=== PATIENT | female | born 1975 | race Caucasian/White ===

== ENCOUNTER 2017-12-27 18:07 | Observation (INO) ==
[2017-12-27] MEDS ORDERED: 0.9 % Sodium Chloride 1,000 ML IVC ONE (18:14)
[2017-12-27] MEDS ORDERED: Ondansetron 4 MG/2 ML VIAL IVP ONE (18:14)
[2017-12-27] MEDS ORDERED: Promethazine 12.5 MG in 0.9 % Sodium Chloride 50 ML IVPB STA (18:39)
[2017-12-27] MEDS ORDERED: Hyoscyamine 0.5 MG/ML MLS IVP ONE ×2 (18:39→23:33)
--- NOTE | 2017-12-27 18:39 | Emergency Department Note ---
Disposition Clinical Impression: Nausea and vomiting Abdominal pain Qualifiers: Abdominal location: unspecified location Qualified Code(s): R10.9 - Unspecified abdominal pain Disposition: Still a Patient Condition: Fair Referrals: Neelima Meyer MD [Primary Care Provider] - Forms: ED Satisfaction Letter, Work/School Release Time of Disposition: 18:48 General Adult HPI - General Chief complaint: ED Abdominal Pain Stated complaint: Flu like symptoms Time Seen by Provider: 12/27/17 18:12 Source: patient Mode of arrival: ambulatory Limitations: no limitations Nursing Notes Reviewed: Yes Vital Signs Reviewed: Yes - History of Present Illness HPI Narrative: Patient is a 42-year-old female with a past medical history of GI disorder presents to the emergency department for evaluation of nausea, vomiting and epigastric abdominal pain. The patient states that she has had this pain that has been chronic and occurs on a weekly basis and usually she is able to self treated at home with a benzodiazepine medication as well as an anti-medic. However, today she states on her way to work she began having this pain with nausea vomiting and epigastric pain that is sharp stabbing and waxing and waning. States she tried her normal home home medications and had no relief. She states that she has taken 3 doses of her home Zofran and continues to have nausea and vomiting. She sees also had multiple episodes of diarrhea today. All nonbloody nonbilious. States she is also been seen by gastroenterology, Dr. Rowe, they have never been able to find any answer as to why she has this chronic abdominal pain. Pain Scale: 3 - Related Data Home Medications Medication Instructions Recorded Confirmed Atorvastatin Calcium [Lipitor] 80 mg PO DAILY 07/29/15 09/21/15 Buspirone HCl [Buspar] 5 mg PO TID PRN 07/29/15 09/21/15 Lisinopril [Zestril] 5 mg PO DAILY 07/29/15 09/21/15 Norethindrone AC-Eth Estradiol 1 tab PO DAILY 07/29/15 09/21/15 [Microgestin 21 1.5-30 Tab] Pioglitazone [Actos] 45 mg PO DAILY 07/29/15 09/21/15 metFORMIN [Glucophage] 1,000 mg PO DAILY 07/29/15 09/21/15 Ferrous Sulfate [Iron] 325 mg PO DAILY 09/21/15 09/21/15 Previous Rx's Medication Instructions Recorded Omeprazole [PriLOSEC] 20 mg PO DAILY #30 capsule 08/01/15 Ondansetron ODT [Zofran ODT] 4 mg SL Q4H PRN #20 tab.rapdis 08/01/15 Simethicone [Gas-X] 80 mg PO TID PRN #45 tab.chew 08/01/15 Allergies Allergy/AdvReac Type Severity Reaction Status Date / Time No Known Allergies Allergy Verified 07/29/15 19:12 All systems ED: reviewed and negative except as stated. Review of Systems: As Per HPI Constitutional: Denies: fever, chills Cardiovascular: Denies: chest pain, palpitations Respiratory: Denies: cough, dyspnea, wheezes Gastrointestinal: Reports: abdominal pain, nausea, vomiting, diarrhea. Denies: constipation, hematemesis, melena, hematochezia Genitourinary: Denies: urgency, dysuria, frequency Musculoskeletal: Denies: back pain, neck pain Past Medical History - Past Medical History Attestation: Yes The following information was validated with the patient. Medical history: Reports: diabetes, hypertension Surgical history: Reports: no surgical history Psychiatric history: Reports: no psych history - Social History Smoking Status: Never smoker Smokeless Tobacco Status: No Alcohol use: Reports: none Drug use: Reports: none Physical Exam CONSTITUTIONAL: Well-appearing; well-nourished; A&O X 3, in no apparent distress HEAD: Normocephalic; atraumatic EYES: PERRL, no scleral icterus NOSE: The nose is normal in appearance without rhinorrhea NECK: No JVD or distended neck veins RESP: Normal chest excursion with respiration; breath sounds clear and equal bilaterally; no wheezes, rhonchi, or rales CARD: Regular rhythm, without murmurs, rub or gallop ABD: Non-distended; epigastric tenderness that is moderate to severe with guarding and rigidity, no rebound. CHEST: No pain with palpation SKIN: Normal for age and race; warm and dry without diaphoresis ; no apparent lesions EXTREMITIES: Pulses are 2 plus and equal times 4 extremities, no peripheral edema or calf muscle pain - General Limitations: no limitations General appearance: alert, in no apparent distress Course Course Narrative: Plan this time is for the patient undergo a lab workup to evaluate for cardiac versus abdominal etiology of the patient's pain. She was even a chest x-ray, and EKG as well as abdominal labs with a CT scan of the abdomen and pelvis. The attempt to provide symptomatic relief of pain with Phenergan as well as Toradol and Bentyl. Vital Signs Temperature 98.4 F 12/27/17 18:11 Pulse Rate 99 12/27/17 18:11 Respiratory Rate 18 12/27/17 18:11 Blood Pressure 162/98 12/27/17 18:11 O2 Sat by Pulse Oximetry 97 12/27/17 18:11 Temperature 98.4 F 12/27/17 18:25 Pulse Rate 85 12/27/17 18:37 Respiratory Rate 22 12/27/17 18:37 Blood Pressure 139/58 12/27/17 18:37 O2 Sat by Pulse Oximetry 98 12/27/17 18:37 Oxygen Delivery Oxygen Delivery Room Air Medical Decision Making - Medical Records Medical records reviewed: Yes I reviewed the patient's medical records. - Lab Data Lab results reviewed: Yes I reviewed the patient's lab results. Lab Results 12/27/17 12/27/17 Range/Units 18:40 18:40 Urine Color Yellow (Yellow) Urine Clarity Clear (Clear) Urine pH 5.5 (5.0-8.0) pH Units Ur Specific [place] 1.028 H (1.010-1.025) Urine Protein 30 H (Neg-Trace) mg/dL Urine Glucose (UA) Normal (Normal) mg/dL Urine Ketones 40 H (Negative) mg/dL Urine Blood Negative (Negative) Urine Nitrite Negative (Negative) Urine Bilirubin Negative (Negative) Urine Urobilinogen Normal (Normal) mg/dL Ur Leukocyte Esterase Negative (Negative) Urine Microscopic RBC 0-3 (0-3) per hpf Urine Microscopic WBC 3-5 H (0-3) per hpf Ur Squamous Epith Cells Many H (None-Few) per lpf Urine Bacteria None Seen (None-Few) per hpf Hyaline Casts None Seen (None-Few) per lpf Ur Culture Indicated? NO (NO) Urine Test Negative (Negative) S.B.A.R. - S.B.A.R. Situation: Demographics, MOA Background: Presenting Complaint, Relevant PMH, Meds, & Allergies Assessment: Vital Signs, Course and respsone to treatment, Exam Concerns, Patient/Family Expectation, Pertinant Lab Results, Outstanding Labs Recommendation: Barrier(s) to disposition, Recommendation based on pending studies, treatments, or consults Deanna Report Given to: Marilu Huerta Repor Time: 18:47
--- NOTE | 2017-12-27 18:49 | Emergency Department Note ---
Disposition Clinical Impression: Abdominal pain Qualifiers: Abdominal location: unspecified location Qualified Code(s): R10.9 - Unspecified abdominal pain Disposition: Still a Patient Referrals: Neelima Meyer MD [Primary Care Provider] - Forms: ED Satisfaction Letter, Work/School Release General Adult HPI - General Chief complaint: ED Abdominal Pain Stated complaint: Flu like symptoms Time Seen by Provider: 12/27/17 18:12 Source: patient Mode of arrival: ambulatory Limitations: no limitations - History of Present Illness Pain Scale: 3 - Related Data Home Medications Medication Instructions Recorded Confirmed Atorvastatin Calcium [Lipitor] 80 mg PO DAILY 07/29/15 09/21/15 Buspirone HCl [Buspar] 5 mg PO TID PRN 07/29/15 09/21/15 Lisinopril [Zestril] 5 mg PO DAILY 07/29/15 09/21/15 Norethindrone AC-Eth Estradiol 1 tab PO DAILY 07/29/15 09/21/15 [Microgestin 21 1.5-30 Tab] Pioglitazone [Actos] 45 mg PO DAILY 07/29/15 09/21/15 metFORMIN [Glucophage] 1,000 mg PO DAILY 07/29/15 09/21/15 Ferrous Sulfate [Iron] 325 mg PO DAILY 09/21/15 09/21/15 Previous Rx's Medication Instructions Recorded Omeprazole [PriLOSEC] 20 mg PO DAILY #30 capsule 08/01/15 Ondansetron ODT [Zofran ODT] 4 mg SL Q4H PRN #20 tab.rapdis 08/01/15 Simethicone [Gas-X] 80 mg PO TID PRN #45 tab.chew 08/01/15 Allergies Allergy/AdvReac Type Severity Reaction Status Date / Time No Known Allergies Allergy Verified 07/29/15 19:12 Constitutional: Denies: fever, chills Cardiovascular: Denies: chest pain, palpitations Respiratory: Denies: cough, dyspnea, wheezes Gastrointestinal: Reports: abdominal pain, nausea, vomiting, diarrhea. Denies: constipation, hematemesis, melena, hematochezia Genitourinary: Denies: urgency, dysuria, frequency Musculoskeletal: Denies: back pain, neck pain Past Medical History - Past Medical History Medical history: Reports: diabetes, hypertension Surgical history: Reports: no surgical history Psychiatric history: Reports: no psych history - Social History Smoking Status: Never smoker Smokeless Tobacco Status: No Alcohol use: Reports: none Drug use: Reports: none Physical Exam - General Limitations: no limitations General appearance: alert, in no apparent distress Course Vital Signs Temperature 98.4 F 12/27/17 18:11 Pulse Rate 99 12/27/17 18:11 Respiratory Rate 18 12/27/17 18:11 Blood Pressure 162/98 12/27/17 18:11 O2 Sat by Pulse Oximetry 97 12/27/17 18:11 Temperature 98.4 F 12/27/17 18:25 Pulse Rate 99 12/27/17 18:25 Respiratory Rate 18 12/27/17 18:25 Blood Pressure 162/98 12/27/17 18:25 O2 Sat by Pulse Oximetry 99 12/27/17 18:37 Oxygen Delivery Oxygen Delivery Room Air Attestation Statement - Attestation Attestation: I examined this patient and my medical decision-making was reviewed with the Resident Physician. I agree with the documented findings, disposition and treatment plan as described except to the extent set forth below. 42 year [facility] and states that it is generalzied abdominal pain without a periotoneal abdomen. [facility] Labs, UA, and ABCT pending.
[2017-12-27 18:59] LABS: Bilirubin,Urine Negative (Negative); Blood,Urine Negative (Negative); Clarity,Urine Clear (Clear); Color,Urine Yellow (Yellow); Glucose,Urine (UA) Normal (Normal); Ketones,Urine 40 mg/dL (Negative); Leukocyte Esterase,Urine Negative (Negative); Nitrite,Urine Negative (Negative); PH,Urine 5.5 pH Units (5.0-8.0); Protein,Urine 30 mg/dL (Neg-Trace); Specific Gravity,Urine 1.028 (1.010-1.025); Urobilinogen,Urine Normal (Normal)
[2017-12-27 19:02] LABS: Bacteria,Urine None Seen per hpf (None-Few); Hyaline Casts,Urine None Seen per lpf (None-Few); RBC,Urine 0-3 per hpf (0-3); Squamous Epithelial Cell,Urine Many per lpf (None-Few)
[2017-12-27] MEDS ORDERED: *HR* Promethazine 25 MG/ML VIAL IVP STA (19:04)
[2017-12-27 19:16] LABS: Basophils # 0.1 K/mcL (0.0-0.2); Basophils % 0.4 %; Eosinophils # 0.1 K/mcL (0.0-0.6); Eosinophils % 0.3 %; Hematocrit 45.6 % (35.3-44.9); Hemoglobin 15.1 g/dL (11.5-15.4); Immature Granulocytes % 0.4 % (0-4); Lymphocytes # 1.7 K/mcL (0.6-4.6); Lymphocytes % 10.8 %; Mean Corpuscular HGB Conc 33.1 g/dL (31.6-35.5); Mean Corpuscular Hemoglobin 29.4 pg (28.0-33.3); Mean Corpuscular Volume 88.9 fL (83.0-100.0); Mean Platelet Volume 10.2 fL (9.4-12.4); Monocytes # 0.6 K/mcL (0.0-1.3); Monocytes % 3.4 %; Neutrophils # 13.5 K/mcL (1.6-8.9); Platelet Count 424 K/mcL (140-400); Red Blood Count 5.13 M/mcL (3.82-4.97); Segmented Neutrophils % 84.7 %
[2017-12-27 19:32] LABS: Troponin I < 0.03 ng/mL (< 0.04)
[2017-12-27 19:36] LABS: Alanine Aminotransferase 13 Units/L (7-52); Albumin/Globulin Ratio 1.3 (1.1-2.2); Alkaline Phosphatase 82 Units/L (34-104); Aspartate Amino Transferase 13 Units/L (13-39); BUN/Creatinine Ratio 14 (6-26); Bilirubin,Direct 0.1 mg/dL (0.0-0.2); Bilirubin,Indirect 0.5 mg/dL (0.0-1.2); Bilirubin,Total 0.6 mg/dL (0.3-1.0); Blood Urea Nitrogen 13 mg/dL (6-20); Calcium 9.5 mg/dL (8.6-10.3); Carbon Dioxide 23 mEq/L (23-29); Chloride 101 mEq/L (98-107); Globulin 3.1 g/dL (2.4-3.5); Glucose 156 mg/dL (70-105); Lipase 7 Units/L (11-82); Osmolality,Calculated 281 (280-300); Potassium 4.5 mEq/L (3.5-5.1); Sodium 134 mEq/L (136-145); Total Protein 7.1 g/dL (6.4-8.9); eGFR For Non-African Americans > 60 (> 60)
--- NOTE | 2017-12-27 22:42 | Emergency Department Note ---
Addendum entered and electronically signed by Andrea Dunham DO 12/27/17 23:12 : Called and spoke with admitting hospitalist Dr Ingram and he has accepted the patient of the service. patient will be admitted to the hospital for further evaluation and management. Original Note: Disposition Clinical Impression: Enteritis, Colitis Abdominal pain Qualifiers: Abdominal location: unspecified location Qualified Code(s): R10.9 - Unspecified abdominal pain Nausea and vomiting Qualifiers: Vomiting type: unspecified Vomiting Intractability: non-intractable Qualified Code(s): R11.2 - Nausea with vomiting, unspecified Disposition: Admitted As Inpatient Condition: Fair Time of Disposition: 22:41 General Adult HPI - General Chief complaint: ED Abdominal Pain Stated complaint: Flu like symptoms Time Seen by Provider: 12/27/17 18:12 Source: patient Mode of arrival: ambulatory Limitations: no limitations - History of Present Illness Pain Scale: 0 - Related Data Home Medications Medication Instructions Recorded Confirmed Atorvastatin Calcium [Lipitor] 80 mg PO DAILY 07/29/15 09/21/15 Buspirone HCl [Buspar] 5 mg PO TID PRN 07/29/15 09/21/15 Lisinopril [Zestril] 5 mg PO DAILY 07/29/15 09/21/15 Norethindrone AC-Eth Estradiol 1 tab PO DAILY 07/29/15 09/21/15 [Microgestin 21 1.5-30 Tab] Pioglitazone [Actos] 45 mg PO DAILY 07/29/15 09/21/15 metFORMIN [Glucophage] 1,000 mg PO DAILY 07/29/15 09/21/15 Ferrous Sulfate [Iron] 325 mg PO DAILY 09/21/15 09/21/15 Previous Rx's Medication Instructions Recorded Omeprazole [PriLOSEC] 20 mg PO DAILY #30 capsule 08/01/15 Ondansetron ODT [Zofran ODT] 4 mg SL Q4H PRN #20 tab.rapdis 08/01/15 Simethicone [Gas-X] 80 mg PO TID PRN #45 tab.chew 08/01/15 Allergies Allergy/AdvReac Type Severity Reaction Status Date / Time No Known Allergies Allergy Verified 07/29/15 19:12 Constitutional: Denies: fever, chills Cardiovascular: Denies: chest pain, palpitations Respiratory: Denies: cough, dyspnea, wheezes Gastrointestinal: Reports: abdominal pain, nausea, vomiting, diarrhea. Denies: constipation, hematemesis, melena, hematochezia Genitourinary: Denies: urgency, dysuria, frequency Musculoskeletal: Denies: back pain, neck pain Past Medical History - Past Medical History Medical history: Reports: diabetes, hypertension Surgical history: Reports: no surgical history Psychiatric history: Reports: no psych history - Social History Smoking Status: Never smoker Smokeless Tobacco Status: No Alcohol use: Reports: none Drug use: Reports: none Physical Exam - General Limitations: no limitations General appearance: alert, in no apparent distress Course Vital Signs Temperature 98.4 F 12/27/17 18:11 Pulse Rate 99 12/27/17 18:11 Respiratory Rate 18 12/27/17 18:11 Blood Pressure 162/98 12/27/17 18:11 O2 Sat by Pulse Oximetry 97 12/27/17 18:11 Temperature 98.4 F 12/27/17 18:25 Pulse Rate 88 12/27/17 22:29 Respiratory Rate 16 12/27/17 22:29 Blood Pressure 138/91 12/27/17 22:29 O2 Sat by Pulse Oximetry 98 12/27/17 22:29 Oxygen Delivery Oxygen Delivery Room Air Medical Decision Making - MDM Narrative Medical decision making narrative: Patient received in signout [place] [address] Wang and Dr. liz Morris please see their documentation for history of presenting illness, physical exam and initial medical decision making. CT of the abdomen and pelvis was obtained which showed concerns for possible inflammatory bowel disease. Patient does have an elevated white count. This and these findings and feel that the patient should be admitted to the hospital for further evaluation and management of her abdominal pain. Patient will likely need a GI consult while here in the hospital. Culture spoke the admitting hospitalist - Lab Data Lab results reviewed: Yes I reviewed the patient's lab results. Result diagrams: 12/27/17 18:14 12/27/17 18:14 Lab Results 12/27/17 12/27/17 12/27/17 Range/Units 18:14 18:14 18:40 WBC 16.0 H (4.3-11.1) K/mcL RBC 5.13 H (3.82-4.97) M/mcL Hgb 15.1 (11.5-15.4) g/dL Hct 45.6 H (35.3-44.9) % MCV 88.9 (83.0-100.0) fL MCH 29.4 (28.0-33.3) pg MCHC 33.1 (31.6-35.5) g/dL RDW 14.0 (11.5-14.5) % Plt Count 424 H (140-400) K/mcL MPV 10.2 (9.4-12.4) fL Immature Gran % 0.4 (0-4) % Seg Neutrophils % 84.7 % Lymphocytes % 10.8 % Monocytes % 3.4 % Eosinophils % 0.3 % Basophils % 0.4 % Neutrophils # 13.5 H (1.6-8.9) K/mcL Lymphocytes # 1.7 (0.6-4.6) K/mcL Monocytes # 0.6 (0.0-1.3) K/mcL Eosinophils # 0.1 (0.0-0.6) K/mcL Basophils # 0.1 (0.0-0.2) K/mcL Sodium 134 L (136-145) mEq/L Potassium 4.5 (3.5-5.1) mEq/L Chloride 101 (98-107) mEq/L Carbon Dioxide 23 (23-29) mEq/L BUN 13 (6-20) mg/dL Creatinine 0.92 (0.60-1.20) mg/dL Est GFR ( Amer) > 60 (> 60) Est GFR (Non-Af Amer) > 60 (> 60) BUN/Creatinine Ratio 14 (6-26) Glucose 156 H (70-105) mg/dL Calculated Osmolality 281 (280-300) Lactic Acid (0.5-2.2) mmol/L Calcium 9.5 (8.6-10.3) mg/dL Total Bilirubin 0.6 (0.3-1.0) mg/dL Direct Bilirubin 0.1 (0.0-0.2) mg/dL Indirect Bilirubin 0.5 (0.0-1.2) mg/dL AST 13 (13-39) Units/L ALT 13 (7-52) Units/L Alkaline Phosphatase 82 (34-104) Units/L Troponin I < 0.03 (< 0.04) ng/mL Serum Total Protein 7.1 (6.4-8.9) g/dL Albumin 4.0 (3.5-5.7) g/dL Globulin 3.1 (2.4-3.5) g/dL Albumin/Globulin Ratio 1.3 (1.1-2.2) Lipase 7 L (11-82) Units/L Urine Color Yellow (Yellow) Urine Clarity Clear (Clear) Urine pH 5.5 (5.0-8.0) pH Units Ur Specific [place] 1.028 H (1.010-1.025) Urine Protein 30 H (Neg-Trace) mg/dL Urine Glucose (UA) Normal (Normal) mg/dL Urine Ketones 40 H (Negative) mg/dL Urine Blood Negative (Negative) Urine Nitrite Negative (Negative) Urine Bilirubin Negative (Negative) Urine Urobilinogen Normal (Normal) mg/dL Ur Leukocyte Esterase Negative (Negative) Urine Microscopic RBC 0-3 (0-3) per hpf Urine Microscopic WBC 3-5 H (0-3) per hpf Ur Squamous Epith Cells Many H (None-Few) per lpf Urine Bacteria None Seen (None-Few) per hpf Hyaline Casts None Seen (None-Few) per lpf Ur Culture Indicated? NO (NO) Urine Test (Negative) 12/27/17 12/27/17 Range/Units 18:40 18:55 WBC (4.3-11.1) K/mcL RBC (3.82-4.97) M/mcL Hgb (11.5-15.4) g/dL Hct (35.3-44.9) % MCV (83.0-100.0) fL MCH (28.0-33.3) pg MCHC (31.6-35.5) g/dL RDW (11.5-14.5) % Plt Count (140-400) K/mcL MPV (9.4-12.4) fL Immature Gran % (0-4) % Seg Neutrophils % % Lymphocytes % % Monocytes % % Eosinophils % % Basophils % % Neutrophils # (1.6-8.9) K/mcL Lymphocytes # (0.6-4.6) K/mcL Monocytes # (0.0-1.3) K/mcL Eosinophils # (0.0-0.6) K/mcL Basophils # (0.0-0.2) K/mcL Sodium (136-145) mEq/L Potassium (3.5-5.1) mEq/L Chloride (98-107) mEq/L Carbon Dioxide (23-29) mEq/L BUN (6-20) mg/dL Creatinine (0.60-1.20) mg/dL Est GFR ( Amer) (> 60) Est GFR (Non-Af Amer) (> 60) BUN/Creatinine Ratio (6-26) Glucose (70-105) mg/dL Calculated Osmolality (280-300) Lactic Acid 1.1 (0.5-2.2) mmol/L Calcium (8.6-10.3) mg/dL Total Bilirubin (0.3-1.0) mg/dL Direct Bilirubin (0.0-0.2) mg/dL Indirect Bilirubin (0.0-1.2) mg/dL AST (13-39) Units/L ALT (7-52) Units/L Alkaline Phosphatase (34-104) Units/L Troponin I (< 0.04) ng/mL Serum Total Protein (6.4-8.9) g/dL Albumin (3.5-5.7) g/dL Globulin (2.4-3.5) g/dL Albumin/Globulin Ratio (1.1-2.2) Lipase (11-82) Units/L Urine Color (Yellow) Urine Clarity (Clear) Urine pH (5.0-8.0) pH Units Ur Specific [place] (1.010-1.025) Urine Protein (Neg-Trace) mg/dL Urine Glucose (UA) (Normal) mg/dL Urine Ketones (Negative) mg/dL Urine Blood (Negative) Urine Nitrite (Negative) Urine Bilirubin (Negative) Urine Urobilinogen (Normal) mg/dL Ur Leukocyte Esterase (Negative) Urine Microscopic RBC (0-3) per hpf Urine Microscopic WBC (0-3) per hpf Ur Squamous Epith Cells (None-Few) per lpf Urine Bacteria (None-Few) per hpf Hyaline Casts (None-Few) per lpf Ur Culture Indicated? (NO) Urine Test Negative (Negative) - Radiology Data Radiology results reviewed: Yes I reviewed the patient's radiology results. Abdomen/Pelvis CT 12/27/17 19:27 IMPRESSION: Multifocal small bowel and large bowel wall thickening. There is multifocal adjacent inflammatory change in the fat between bowel loops in the right side of the abdomen extending into the upper pelvis. This raises the question of inflammatory bowel disease. A small amount of ascites is noted. No abscess D/ / Ronan Daly / Ronan Daly Interpreting Provider: Ronan Daly
--- NOTE | 2017-12-27 23:44 | Emergency Department Note ---
Disposition Clinical Impression: Enteritis, Colitis Abdominal pain Qualifiers: Abdominal location: unspecified location Qualified Code(s): R10.9 - Unspecified abdominal pain Nausea and vomiting Qualifiers: Vomiting type: unspecified Vomiting Intractability: non-intractable Qualified Code(s): R11.2 - Nausea with vomiting, unspecified Disposition: Admitted As Inpatient Condition: Fair General Adult HPI - General Chief complaint: ED Abdominal Pain Stated complaint: Flu like symptoms Time Seen by Provider: 12/27/17 18:12 Source: patient Mode of arrival: ambulatory Limitations: no limitations Nursing Notes Reviewed: Yes Vital Signs Reviewed: Yes - History of Present Illness Pain Scale: 0 - Related Data Home Medications Medication Instructions Recorded Confirmed Atorvastatin Calcium [Lipitor] 80 mg PO DAILY 07/29/15 09/21/15 Buspirone HCl [Buspar] 5 mg PO TID PRN 07/29/15 09/21/15 Lisinopril [Zestril] 5 mg PO DAILY 07/29/15 09/21/15 Norethindrone AC-Eth Estradiol 1 tab PO DAILY 07/29/15 09/21/15 [Microgestin 21 1.5-30 Tab] Pioglitazone [Actos] 45 mg PO DAILY 07/29/15 09/21/15 metFORMIN [Glucophage] 1,000 mg PO DAILY 07/29/15 09/21/15 Ferrous Sulfate [Iron] 325 mg PO DAILY 09/21/15 09/21/15 Previous Rx's Medication Instructions Recorded Omeprazole [PriLOSEC] 20 mg PO DAILY #30 capsule 08/01/15 Ondansetron ODT [Zofran ODT] 4 mg SL Q4H PRN #20 tab.rapdis 08/01/15 Simethicone [Gas-X] 80 mg PO TID PRN #45 tab.chew 08/01/15 Allergies Allergy/AdvReac Type Severity Reaction Status Date / Time No Known Allergies Allergy Verified 07/29/15 19:12 Constitutional: Denies: fever, chills Cardiovascular: Denies: chest pain, palpitations Respiratory: Denies: cough, dyspnea, wheezes Gastrointestinal: Reports: abdominal pain, nausea, vomiting, diarrhea. Denies: constipation, hematemesis, melena, hematochezia Genitourinary: Denies: urgency, dysuria, frequency Musculoskeletal: Denies: back pain, neck pain Past Medical History - Past Medical History Medical history: Reports: diabetes, hypertension Surgical history: Reports: no surgical history Psychiatric history: Reports: no psych history - Social History Smoking Status: Never smoker Smokeless Tobacco Status: No Alcohol use: Reports: none Drug use: Reports: none Physical Exam - General Limitations: no limitations General appearance: alert, in no apparent distress Course Vital Signs Temperature 98.4 F 12/27/17 18:11 Pulse Rate 99 12/27/17 18:11 Respiratory Rate 18 12/27/17 18:11 Blood Pressure 162/98 12/27/17 18:11 O2 Sat by Pulse Oximetry 97 12/27/17 18:11 Temperature 98.4 F 12/27/17 18:25 Pulse Rate 88 12/27/17 22:29 Respiratory Rate 16 12/27/17 22:29 Blood Pressure 138/91 12/27/17 22:29 O2 Sat by Pulse Oximetry 98 12/27/17 22:29 Oxygen Delivery Oxygen Delivery Room Air Medical Decision Making - Medical Records Medical records reviewed: Yes I reviewed the patient's medical records. - Lab Data Lab results reviewed: Yes I reviewed the patient's lab results. Result diagrams: 12/27/17 18:14 12/27/17 18:14 Lab Results 12/27/17 12/27/17 12/27/17 Range/Units 18:14 18:14 18:40 WBC 16.0 H (4.3-11.1) K/mcL RBC 5.13 H (3.82-4.97) M/mcL Hgb 15.1 (11.5-15.4) g/dL Hct 45.6 H (35.3-44.9) % MCV 88.9 (83.0-100.0) fL MCH 29.4 (28.0-33.3) pg MCHC 33.1 (31.6-35.5) g/dL RDW 14.0 (11.5-14.5) % Plt Count 424 H (140-400) K/mcL MPV 10.2 (9.4-12.4) fL Immature Gran % 0.4 (0-4) % Seg Neutrophils % 84.7 % Lymphocytes % 10.8 % Monocytes % 3.4 % Eosinophils % 0.3 % Basophils % 0.4 % Neutrophils # 13.5 H (1.6-8.9) K/mcL Lymphocytes # 1.7 (0.6-4.6) K/mcL Monocytes # 0.6 (0.0-1.3) K/mcL Eosinophils # 0.1 (0.0-0.6) K/mcL Basophils # 0.1 (0.0-0.2) K/mcL Sodium 134 L (136-145) mEq/L Potassium 4.5 (3.5-5.1) mEq/L Chloride 101 (98-107) mEq/L Carbon Dioxide 23 (23-29) mEq/L BUN 13 (6-20) mg/dL Creatinine 0.92 (0.60-1.20) mg/dL Est GFR ( Amer) > 60 (> 60) Est GFR (Non-Af Amer) > 60 (> 60) BUN/Creatinine Ratio 14 (6-26) Glucose 156 H (70-105) mg/dL Calculated Osmolality 281 (280-300) Lactic Acid (0.5-2.2) mmol/L Calcium 9.5 (8.6-10.3) mg/dL Total Bilirubin 0.6 (0.3-1.0) mg/dL Direct Bilirubin 0.1 (0.0-0.2) mg/dL Indirect Bilirubin 0.5 (0.0-1.2) mg/dL AST 13 (13-39) Units/L ALT 13 (7-52) Units/L Alkaline Phosphatase 82 (34-104) Units/L Troponin I < 0.03 (< 0.04) ng/mL Serum Total Protein 7.1 (6.4-8.9) g/dL Albumin 4.0 (3.5-5.7) g/dL Globulin 3.1 (2.4-3.5) g/dL Albumin/Globulin Ratio 1.3 (1.1-2.2) Lipase 7 L (11-82) Units/L Urine Color Yellow (Yellow) Urine Clarity Clear (Clear) Urine pH 5.5 (5.0-8.0) pH Units Ur Specific [place] 1.028 H (1.010-1.025) Urine Protein 30 H (Neg-Trace) mg/dL Urine Glucose (UA) Normal (Normal) mg/dL Urine Ketones 40 H (Negative) mg/dL Urine Blood Negative (Negative) Urine Nitrite Negative (Negative) Urine Bilirubin Negative (Negative) Urine Urobilinogen Normal (Normal) mg/dL Ur Leukocyte Esterase Negative (Negative) Urine Microscopic RBC 0-3 (0-3) per hpf Urine Microscopic WBC 3-5 H (0-3) per hpf Ur Squamous Epith Cells Many H (None-Few) per lpf Urine Bacteria None Seen (None-Few) per hpf Hyaline Casts None Seen (None-Few) per lpf Ur Culture Indicated? NO (NO) Urine Test (Negative) 12/27/17 12/27/17 Range/Units 18:40 18:55 WBC (4.3-11.1) K/mcL RBC (3.82-4.97) M/mcL Hgb (11.5-15.4) g/dL Hct (35.3-44.9) % MCV (83.0-100.0) fL MCH (28.0-33.3) pg MCHC (31.6-35.5) g/dL RDW (11.5-14.5) % Plt Count (140-400) K/mcL MPV (9.4-12.4) fL Immature Gran % (0-4) % Seg Neutrophils % % Lymphocytes % % Monocytes % % Eosinophils % % Basophils % % Neutrophils # (1.6-8.9) K/mcL Lymphocytes # (0.6-4.6) K/mcL Monocytes # (0.0-1.3) K/mcL Eosinophils # (0.0-0.6) K/mcL Basophils # (0.0-0.2) K/mcL Sodium (136-145) mEq/L Potassium (3.5-5.1) mEq/L Chloride (98-107) mEq/L Carbon Dioxide (23-29) mEq/L BUN (6-20) mg/dL Creatinine (0.60-1.20) mg/dL Est GFR ( Amer) (> 60) Est GFR (Non-Af Amer) (> 60) BUN/Creatinine Ratio (6-26) Glucose (70-105) mg/dL Calculated Osmolality (280-300) Lactic Acid 1.1 (0.5-2.2) mmol/L Calcium (8.6-10.3) mg/dL Total Bilirubin (0.3-1.0) mg/dL Direct Bilirubin (0.0-0.2) mg/dL Indirect Bilirubin (0.0-1.2) mg/dL AST (13-39) Units/L ALT (7-52) Units/L Alkaline Phosphatase (34-104) Units/L Troponin I (< 0.04) ng/mL Serum Total Protein (6.4-8.9) g/dL Albumin (3.5-5.7) g/dL Globulin (2.4-3.5) g/dL Albumin/Globulin Ratio (1.1-2.2) Lipase (11-82) Units/L Urine Color (Yellow) Urine Clarity (Clear) Urine pH (5.0-8.0) pH Units Ur Specific [place] (1.010-1.025) Urine Protein (Neg-Trace) mg/dL Urine Glucose (UA) (Normal) mg/dL Urine Ketones (Negative) mg/dL Urine Blood (Negative) Urine Nitrite (Negative) Urine Bilirubin (Negative) Urine Urobilinogen (Normal) mg/dL Ur Leukocyte Esterase (Negative) Urine Microscopic RBC (0-3) per hpf Urine Microscopic WBC (0-3) per hpf Ur Squamous Epith Cells (None-Few) per lpf Urine Bacteria (None-Few) per hpf Hyaline Casts (None-Few) per lpf Ur Culture Indicated? (NO) Urine Test Negative (Negative) - Radiology Data Radiology results reviewed: Yes I reviewed the patient's radiology results. Abdomen/Pelvis CT 12/27/17 19:27 IMPRESSION: Multifocal small bowel and large bowel wall thickening. There is multifocal adjacent inflammatory change in the fat between bowel loops in the right side of the abdomen extending into the upper pelvis. This raises the question of inflammatory bowel disease. A small amount of ascites is noted. No abscess D/ / Ronan Daly / Ronan Daly Interpreting Provider: Ronan Daly Attestation Statement - Attestation Attestation: I, Carlos Matos MD, personally evaluated this patient and discussed their management with the resident physician. I reviewed the resident's note and agree with the documented findings, medical decision making, and plan of care. This patient was signed out at shift change from Dr. Wang and Dr. Lillian Morris. Please refer to their notes for complete details of the history and physical examination. Patient has a history of some chronic abdominal pain primarily in the epigastric region as well as nausea. She presents complaining of worse pain and worse nausea and vomiting over the past several days. No fever. No GI bleed symptoms. On examination patient is a well-developed well-nourished female in no acute distress. She is alert and oriented 3. There is no cyanosis or diaphoresis. Breath sounds are clear and equal bilaterally. Heart regular rate and rhythm. Abdomen is soft with present bowel sounds. There is mild epigastric and left upper quadrant tenderness. Labs reviewed. CT showed some diffuse bowel wall thickening of the colon and scattered areas of bowel wall thickening of the small intestine. The hospitalist, Dr. Coffey, was consulted and accepted admission of the patient.
[2017-12-28] MEDS ORDERED: Naloxone 0.4 MG/ML INJ IVP PRN (03:43)
[2017-12-28] MEDS ORDERED: *HR* Promethazine 25 MG/ML VIAL IVP PRN (03:45)
[2017-12-28] MEDS ORDERED: *HR* Dextrose 50 % in Water (Syg) 50 ML SYRINGE IVP PRN (03:53)
[2017-12-28] MEDS ORDERED: D5% in Water 1,000 ML IVC PRN (03:53)
[2017-12-28] MEDS ORDERED: Dextrose Gel 15 GM/37.5 ML TUBE PO PRN ×2 (03:53)
--- NOTE | 2017-12-28 04:09 | Internal Med History&Physical ---
Date of Encounter: 12/28/17 Time of Encounter: 02:00 Internal Medicine - H&P: HPI Chief complaint: Abdominal pain Admitted From: Emergency Dept Plans for Post Hospital Care: Home History of present illness: Ms. Barrera is a 42 year old female Patient states she began having left-sided abdominal pain that started the day prior to her admission while she was having to work. Started off as a dull pain especially increased in intensity. She then also has frequent intense pain was well in the same area. Episodes are brief, but happen every 20-30 minutes. She does not know of any inciting factors, pain is not worse with food. Pain does get worse if she changes position however. She has had similar pain in the past most recently 2 years ago, she underwent fairly extensive workup with gastroenterology at that time but no cause was identified. She states she has had 6 episodes of vomiting since yesterday and a few episodes of diarrhea. She denies noticing any dark material or redness in her vomit or stool. She came to the emergency room for further evaluation. In the emergency room patient's lab work showed white count of 16.0, abdominal pelvic CT showed multifocal small bowel and large bowel wall thickening. There is multifocal adjacent inflammatory change in the fat between bowel loops in the right side of the abdomen extending into the upper pelvis. This raises the question of inflammatory bowel disease. There is also small amount of ascites noted but no abscesses. She was admitted for further workup. Currently patient denies much pain she is resting in the hospital bed. She denies chest pain, shortness of breath. She was given Phenergan in the ER and her nausea is more controlled. She has not had episodes of diarrhea since she arrived. She is a history of diabetes and takes metformin, Actos and Januvia. Past Med Surg Social Fam HX - Past Medical History Medical history: diabetes, hypertension Psychiatric history: no psych history - Past Surgical History Surgical History: no surgical history - Social History Smoking Status: Never smoker Smokeless Tobacco Status: No Alcohol use: none Drug use: none - Family History Mother Living Status: Still Living Hx Family Cardiac Disorders: No Hx Family Respiratory Disorders: No Hx Family Cancer: No Hx Family GI Disorders: No Hx Family Endocrine Disorder: No Hx Family Neuromuscular Disorders: No Hx Family Neurologic Disorders: No Hx Family HEENT Disorders: No Hx Family Autoimmune Disorders: No Father Living Status: Still Living Hx Family Cardiac Disorders: No Hx Family Respiratory Disorders: No Hx Family Cancer: Yes (COLON) Hx Family GI Disorders: No Hx Family Endocrine Disorder: No Hx Family Neuromuscular Disorders: No Hx Family Neurologic Disorders: No Hx Family HEENT Disorders: No Hx Family Autoimmune Disorders: No Internal Medicine - H&P: Meds Atorvastatin Calcium [Lipitor] 80 mg PO DAILY 07/29/15 [History] Lisinopril [Zestril] 5 mg PO DAILY 07/29/15 [History] Pioglitazone [Actos] 45 mg PO DAILY 07/29/15 [History] metFORMIN [Glucophage] 1,000 mg PO BID 07/29/15 [History] Ondansetron ODT [Zofran ODT] 4 mg SL Q4H PRN #20 tab.rapdis 08/01/15 [Rx] Ferrous Sulfate [Iron] 325 mg PO DAILY 09/21/15 [History] SitaGLIPtin [Januvia] 25 mg PO 12/28/17 [History] 3 Allergy/AdvReac Type Severity Reaction Status Date / Time No Known Allergies Allergy Verified 07/29/15 19:12 All Systems PM: A 10-system review of systems was performed and is negative for pertinent findings except as documented above in the HPI. - Constitutional Vitals: Temp Pulse Resp BP Pulse Ox 97.9 F 83 16 157/87 95 12/28/17 01:23 12/28/17 01:23 12/28/17 01:23 12/28/17 01:23 12/28/17 01:23 General appearance: Present: cooperative, A&O X 3, pleasant, no acute distress, answers questions appropriately Exam: As above - Head Head exam: Present: normal inspection - Eye Eye exam: Present: EOMI, normal appearance - Respiratory Respiratory exam: Present: CTAB. Absent: chest wall tenderness, decreased breath sounds, respiratory distress, wheezes - Cardiovascular Cardiovascular exam: Present: RRR, systolic murmur. Absent: diastolic murmur Additional comments: Slight systolic murmur heard on exam - GI/Abdominal GI/Abdominal exam: Present: diminished bowel sounds, hypoactive bowel sounds, tenderness Additional comments: Patient's bowel sounds were hypoactive, and diminished. Left-sided tenderness with palpation as well as epigastric tenderness. Right side of abdomen no tenderness with palpation - Extremities Exam Extremities exam: Present: warm, radial pulses palpable and symmetrical. Absent : calf tenderness, pedal edema, tenderness - Neurological Exam Neurological exam: Present: no focal deficits, strengths equal and symetr throughout. Absent: motor sensory deficit, facial droop, speech deficit - Skin Skin exam: Present: dry, normal color, warm Internal Med - H&P Results - Labs CBC & Chem 7: 12/28/17 05:56 12/27/17 18:14 - Assessment and plan (1) Abdominal pain Current Visit: Yes Status: Acute Assessment and plan: History of similar episodes in the past. Has seen GI, but not recent follow up. CT showed inflammatory changes. GI consult NPO, advance diet as tolerated. [place] 5/325 for pain Hold metformin GI panel Qualifiers: Abdominal location: unspecified location Qualified Code(s): R10.9 - Unspecified abdominal pain (2) Diarrhea Current Visit: Yes Status: Acute Assessment and plan: Has had multiple episodes, associated with nausea and vomiting. Denies noticing blood in stool GI panel GI consult today Stool occult blood test Qualifiers: Qualified Code(s): R19.7 - Diarrhea, unspecified (3) Nausea and vomiting Current Visit: Yes Status: Acute Assessment and plan: Associated diarrhea Phenergan PRN NPO Qualifiers: Vomiting type: unspecified Vomiting Intractability: non-intractable Qualified Code(s): R11.2 - Nausea with vomiting, unspecified (4) Diabetes Current Visit: No Status: Chronic Assessment and plan: Hold home meds Monitor sugars Q6H Low dose sliding scale Qualifiers: Diabetes mellitus type: type 2 Diabetes mellitus complication status: without complication Qualified Code(s): E11.9 - Type 2 diabetes mellitus without complications - Time Spent With Patient Total time spent is greater than 50% in coordination of care (as documented) at patient's floor/unit and/or counseling patient: Greater than 35 minutes
[2017-12-28] MEDS: Insulin LISPRO 300 UNITS/3 ML VIAL SQ SCH ×3 (05:42→17:29)
[2017-12-28 06:11] LABS: Hematocrit 39.9 % (35.3-44.9); Mean Corpuscular HGB Conc 32.6 g/dL (31.6-35.5); Mean Corpuscular Hemoglobin 29.6 pg (28.0-33.3); Mean Corpuscular Volume 90.9 fL (83.0-100.0); Mean Platelet Volume 10.3 fL (9.4-12.4); Platelet Count 276 K/mcL (140-400); Red Blood Count 4.39 M/mcL (3.82-4.97); Red Cell Distribution Width 14.1 % (11.5-14.5)
[2017-12-28] MEDS: *HR* HYDROcodone/Acet 5/325 mg TABLET PO PRN ×2 (06:28→22:04)
[2017-12-28 07:44] LABS: BUN/Creatinine Ratio 12 (6-26); Blood Urea Nitrogen 11 mg/dL (6-20); Calcium 8.9 mg/dL (8.6-10.3); Carbon Dioxide 22 mEq/L (23-29); Chloride 104 mEq/L (98-107); Glucose 122 mg/dL (70-105); Osmolality,Calculated 281 (280-300); Potassium 3.8 mEq/L (3.5-5.1); Sodium 135 mEq/L (136-145); eGFR For Non-African Americans > 60 (> 60)
--- NOTE | 2017-12-28 11:19 | Event Note ---
Date of Encounter: 12/28/17 Time of Encounter: 11:13 42 F being managed for suspected Inflammatory bowel disease, due to presence of n/v/d as well as multifocal small and large bowel thickening, with associated adjacent inflammatory changes in the fat between the bowel loops Her abdomen is acute, but not tender. GI has been consulted and evaluation is pending I will start the patient on intravenous fluid hydration and antibiotics GI panel is pending The patient reports had diarrhea has stopped since admission. Continue other management Keep NPO till GI eval
[2017-12-28 11:58] LABS: C-Reactive Protein 28 mg/L (Less than 10)
--- NOTE | 2017-12-28 12:21 | Gastroenterology Consult Note ---
<Christiano Solares - Last Filed: 12/28/17 12:16> Date of Encounter: 12/28/17 Time of Encounter: 10:40 - Assessment and plan (1) Abdominal pain Current Visit: No Status: Resolved Assessment and plan: CT A/P showed multifocal small bowel and large bowel wall thickening with multifocal adjacent inflammatory change in the fat between bowel loops in the right side of the abdomen extending into the upper pelvis. This raises the question of inflammatory bowel disease. EGD/colonoscopy/capsule endoscopy in 2016 were negative for source of pain. Check ESR, CRP, ASCA, ANCA, and fecal calprotectin. Start Solu-Medrol 60 mg IV daily. Plan for colonoscopy on Sunday. Clear liquid diet Sunday, no red or purple. NPO at midnight. If unable tolerate NuLytely please use MiraLAX prep. If not clear by 6 AM on Sunday, give 2 tap water enemas. Qualifiers: Abdominal location: unspecified location Qualified Code(s): R10.9 - Unspecified abdominal pain - Time Spent With Patient Total time spent is greater than 50% in coordination of care (as documented) at patient's floor/unit and/or counseling patient: GI History of Present Illness - Data of Consult Patient: known to practice within the last 3 years Consult date: 12/28/17 Requesting Physician: Obdulio Aguilar MD - Consult Narrative Reason for consult: Abdominal pain, IBD History of present illness: Ms. Barrera is a 42 year old female with PMHx of DM, HTN who presented to the ED with complaints of left sided abdominal pain that started the day prior to her admission while she was working. Started off as a dull pain and increased in intensity. Episodes are brief, but happen every 20-30 minutes. Pain does get worse if she changes position. She had extensive workup in [address] at that time showed severe enteritis primarily involving the jejunum. EGD, colonoscopy, capsule endoscopy were completed. Fecal calprotectin was negative, ANCA and ASCA were normal. She denies melena, hematochezia, or hematemesis. She states she has had 6 episodes of vomiting since day before admission and a few episodes of diarrhea. WBC 16 on admission and 10.[address] A/P showed multifocal small bowel and large bowel wall thickening with multifocal adjacent inflammatory change in the fat between bowel loops in the right side of the abdomen extending into the upper pelvis. This raises the question of inflammatory bowel disease. Procedures: Capsule endoscopy 12/08/2015: Normal EGD 09/21/2015 Dr. Rowe: Eosinophilic esophagitis, medium hiatal hernia. Colonoscopy 09/21/2015 Dr. Rowe: Chronic nonspecific inflammation, internal hemorrhoids. NSAIDs: None Anticoagulation: None Past Med Surg Social Fam HX - Past Medical History Medical history: diabetes, hypertension Psychiatric history: no psych history - Past Surgical History Surgical History: no surgical history - Social History Smoking Status: Never smoker Smokeless Tobacco Status: No Alcohol use: none Drug use: none - Family History Mother Living Status: Still Living Hx Family Cardiac Disorders: No Hx Family Respiratory Disorders: No Hx Family Cancer: No Hx Family GI Disorders: No Hx Family Endocrine Disorder: No Hx Family Neuromuscular Disorders: No Hx Family Neurologic Disorders: No Hx Family HEENT Disorders: No Hx Family Autoimmune Disorders: No Father Living Status: Still Living Hx Family Cardiac Disorders: No Hx Family Respiratory Disorders: No Hx Family Cancer: Yes (COLON) Hx Family GI Disorders: No Hx Family Endocrine Disorder: No Hx Family Neuromuscular Disorders: No Hx Family Neurologic Disorders: No Hx Family HEENT Disorders: No Hx Family Autoimmune Disorders: No - Gastrointestinal Gastrointestinal: Present: as per HPI - Constitutional Constitutional: as per HPI - EENT Eyes: as per HPI Ears: Present: as per HPI Nose, mouth and throat: Present: as per HPI - Cardiovascular Cardiovascular ROS: Present: as per HPI - Respiratory Respiratory IM: Present: as per HPI - Genitourinary Genitourinary: Absent: change in color, Urinary frequency - Neurological ROS Neurological GI: Present: as per HPI - Hematologic/Lymphatic Hematologic/Lymphatic pediatric: Present: as per HPI - Musculoskeletal Musculoskeletal ROS GI: Present: as per HPI - Integumentary Integumentary GI: Present: as per HPI - Psychiatric ROS Psychiatric GI: Present: as per HPI - Endocrine Endocrine IM: Present: as per HPI - Constitutional Vitals: Temp Pulse Resp BP Pulse Ox 98.2 F 71 17 111/71 96 12/28/17 11:39 12/28/17 11:39 12/28/17 11:39 12/28/17 11:39 12/28/17 11:39 General appearance: Present: cooperative, A&O X 3, no acute distress, answers questions appropriately - Head Head exam: Present: atraumatic, normocephalic - Eye Eye exam: Present: normal appearance, sclera anicteric - ENT ENT exam: Present: mucous membranes dry - Neck Neck exam general surgery: Present: normal inspection, trachea midline - Respiratory Respiratory exam: Present: CTAB. Absent: rales, rhonchi - Cardiovascular Cardiovascular exam: Present: RRR, +S1, +S2 - GI/Abdominal GI/Abdominal exam: Present: soft, tenderness (left side tenderness with palpation), no peritoneal signs. Absent: distended, firm, guarding - Rectal Rectal exam: Present: deferred - Extremities Exam Extremities exam: Present: warm - Neurological Exam Neurological exam: Present: no focal deficits - Psychiatric Psychiatric exam: Present: normal affect, normal mood - Skin Skin exam: Present: dry, intact, normal color, warm Results - Labs CBC & Chem 7: 12/28/17 05:56 12/28/17 07:14 Labs: Last Result ESR 45 mm/hr (0-15) H 12/28/17 07:14 Calcium 8.9 mg/dL (8.6-10.3) 12/28/17 07:14 Troponin I < 0.03 ng/mL (< 0.04) 12/27/17 18:14 C-Reactive Protein 28 mg/L (Less than 10) H 12/28/17 07:14 Entire Visit Hgb 13.0 g/dL (11.5-15.4) D 12/28/17 05:56 Hct 39.9 % (35.3-44.9) 12/28/17 05:56 Total Bilirubin 0.6 mg/dL (0.3-1.0) 12/27/17 18:14 AST 13 Units/L (13-39) 12/27/17 18:14 ALT 13 Units/L (7-52) 12/27/17 18:14 Lipase 7 Units/L (11-82) L 12/27/17 18:14 Consult Discharge Plan - Plan Referrals: Neelima Meyer MD [Primary Care Provider] - <Jordyn Rowe - Last Filed: 12/28/17 16:45> Date of Encounter: 12/28/17 Time of Encounter: 14:15 - Time Spent With Patient Total time spent is greater than 50% in coordination of care (as documented) at patient's floor/unit and/or counseling patient: GI History of Present Illness - Data of Consult Requesting Physician: Obdulio Aguilar MD - Consult Narrative History of present illness: Ms. Barrera is a 42 year old female - Constitutional Vitals: Temp Pulse Resp BP Pulse Ox 98.4 F 75 18 115/75 94 12/28/17 15:57 12/28/17 15:57 12/28/17 15:57 12/28/17 15:57 12/28/17 15:57 Results - Labs CBC & Chem 7: 12/28/17 05:56 12/28/17 07:14 Labs: Last Result ESR 45 mm/hr (0-15) H 12/28/17 07:14 Calcium 8.9 mg/dL (8.6-10.3) 12/28/17 07:14 Troponin I < 0.03 ng/mL (< 0.04) 12/27/17 18:14 C-Reactive Protein 28 mg/L (Less than 10) H 12/28/17 07:14 Entire Visit Hgb 13.0 g/dL (11.5-15.4) D 12/28/17 05:56 Hct 39.9 % (35.3-44.9) 12/28/17 05:56 Total Bilirubin 0.6 mg/dL (0.3-1.0) 12/27/17 18:14 AST 13 Units/L (13-39) 12/27/17 18:14 ALT 13 Units/L (7-52) 12/27/17 18:14 Lipase 7 Units/L (11-82) L 12/27/17 18:14 - Attending Attestation I have personally performed a face to face evaluation on this patient. I have reviewed and agree with the care plan. History and Exam by me shows: Pt seen. O/E Abd soft, mild mid abd tanderness. A: Pt with enteritis r/o Crohn Rec: IV steroids, Colon with TI exam on sunday
[2017-12-28] MEDS: MetroNIDAZOLE 500 MG/100 ML 500 MG/100 ML BAG IVPB SCH ×2 (12:51→22:03)
[2017-12-28] MEDS: methylPREDNISolone 125 MG/2 ML VIAL IVP SCH (14:27)
[2017-12-28] MEDS: D5% in Lactated Ringers 1,000 ML IVC SCH (14:28)
[2017-12-29] MEDS: Insulin LISPRO 300 UNITS/3 ML VIAL SQ SCH ×4 (01:59→17:56)
[2017-12-29] MEDS: MetroNIDAZOLE 500 MG/100 ML 500 MG/100 ML BAG IVPB SCH ×3 (05:18→23:17)
[2017-12-29 07:24] LABS: Basophils % 0.2 %; Hematocrit 34.1 % (35.3-44.9); Immature Granulocytes % 0.5 % (0-4); Lymphocytes # 1.2 K/mcL (0.6-4.6); Lymphocytes % 12.7 %; Mean Corpuscular HGB Conc 33.4 g/dL (31.6-35.5); Mean Corpuscular Hemoglobin 29.2 pg (28.0-33.3); Mean Corpuscular Volume 87.4 fL (83.0-100.0); Mean Platelet Volume 10.4 fL (9.4-12.4); Monocytes # 0.5 K/mcL (0.0-1.3); Monocytes % 4.8 %; Neutrophils # 7.8 K/mcL (1.6-8.9); Platelet Count 351 K/mcL (140-400); Red Cell Distribution Width 14.1 % (11.5-14.5); Segmented Neutrophils % 81.8 %
[2017-12-29 07:32] LABS: BUN/Creatinine Ratio 12 (6-26); Blood Urea Nitrogen 8 mg/dL (6-20); Carbon Dioxide 22 mEq/L (23-29); Chloride 103 mEq/L (98-107); Glucose 218 mg/dL (70-105); Osmolality,Calculated 287 (280-300); Potassium 3.9 mEq/L (3.5-5.1); Sodium 136 mEq/L (136-145); eGFR For Non-African Americans > 60 (> 60)
[2017-12-29 07:37] LABS: Hemoglobin 11.4 g/dL (11.5-15.4)
--- NOTE | 2017-12-29 08:49 | Electrocardiograph Report ---
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
[2017-12-29] MEDS: methylPREDNISolone 125 MG/2 ML VIAL IVP SCH (10:30)
[2017-12-29] MEDS: D5% in Lactated Ringers 1,000 ML IVC SCH (10:30)
--- NOTE | 2017-12-29 15:57 | Internal Med Progress Note ---
Hospitalist Progress Note - Encounter Date of Encounter: 12/29/17 Time of Encounter: 11:00 - Subjective Interval History: Patient with history of intermittent abdominal pain/nausea/vomiting for the last 2 years who presents with the same found to have multifocal small bowel and large bowel wall thickening with adjacent inflammatory change concerning for inflammatory bowel disease. Patient reports this morning that her abdominal discomfort has resolved and patient's nausea/vomiting/diarrhea has resolved as well. Awaiting colonoscopy on 12/31/17 per GI - Exam Vitals: Temp Pulse Resp BP Pulse Ox 98.1 F 82 17 110/68 95 12/29/17 07:42 12/29/17 07:42 12/29/17 07:42 12/29/17 07:42 12/29/17 07:42 Exam: Gen.: Nonacute distress, alert and oriented 3 ENT: Mucosal membranes moist Respiratory: Lungs are clear to auscultation bilaterally without any wheezing rhonchi or rales Cardiovascular: Normal S1 and S2 regular rate rhythm no murmurs rubs or gallops Abdomen: Soft, nontender and nondistended with positive bowel sounds Extremities: No lower extremity edema Skin: Normal color - Assessment and Plan (1) Abdominal pain Current Visit: Yes Status: Acute Assessment and Plan: CT of the abdomen/pelvis showed multifocal small bowel/large bowel wall thickening with multifocal adjacent inflammatory changes concerning for inflammatory bowel disease. Patient reports that, discomfort has resolved as has diarrhea GI following with recommendations for colonoscopy on 12/31/17 Will continue IV Cipro/Flagyl in addition to IV Solu-Medrol (2) Colitis Current Visit: Yes Status: Acute Assessment and Plan: Patient's leukocytosis has resolved and she has been afebrile Will continue IV Cipro and Flagyl as above (3) Diabetes Current Visit: No Status: Chronic Assessment and Plan: Continue coverage for sliding scale insulin - Time Spent with Patient Total time spent is greater than 50% in coordination of care (as documented) at patient's floor/unit and/or counseling patient: Internal Medicine: Result - Labs CBC & Chem 7: 12/29/17 06:08 12/29/17 06:08 Labs: Short CBC 12/29/17 Range/Units 06:08 WBC 9.6 (4.3-11.1) K/mcL Hgb 11.4 L D (11.5-15.4) g/dL Hct 34.1 L (35.3-44.9) % Plt Count 351 (140-400) K/mcL Neutrophils # 7.8 (1.6-8.9) K/mcL BMP 12/29/17 06:08 Sodium 136 Potassium 3.9 Chloride 103 Carbon Dioxide 22 L BUN 8 Creatinine 0.68 Glucose 218 H Calcium 9.0 Consult Discharge Plan - Plan Referrals: Neelima Meyer MD [Primary Care Provider] - (1) Abdominal pain Qualifiers: Abdominal location: unspecified location Qualified Code(s): R10.9 - Unspecified abdominal pain (3) Diabetes Qualifiers: Diabetes mellitus type: type 2 Diabetes mellitus complication status: without complication
[2017-12-30] MEDS: Insulin LISPRO 300 UNITS/3 ML VIAL SQ SCH ×4 (00:51→17:24)
[2017-12-30] MEDS: metroNIDAZOLE 500 MG TABLET PO SCH ×3 (09:02→22:05)
[2017-12-30] MEDS: methylPREDNISolone 125 MG/2 ML VIAL IVP SCH (09:09)
[2017-12-30] MEDS: D5% in Lactated Ringers 1,000 ML IVC SCH ×2 (09:10→17:23)
--- NOTE | 2017-12-30 09:57 | Internal Med Progress Note ---
Hospitalist Progress Note - Encounter Date of Encounter: 12/30/17 Time of Encounter: 11:00 - Subjective Interval History: Patient with history of intermittent abdominal pain/nausea/vomiting for the last 2 years who presents with the same found to have multifocal small bowel and large bowel wall thickening with adjacent inflammatory change concerning for inflammatory bowel disease. Awaiting colonoscopy on 12/31/17 per GI - Exam Vitals: Temp Pulse Resp BP Pulse Ox 98.3 F 71 18 123/76 97 12/30/17 07:49 12/30/17 07:49 12/30/17 07:49 12/30/17 07:49 12/30/17 07:49 Exam: Gen.: Nonacute distress, alert and oriented 3 ENT: Mucosal membranes moist Respiratory: Lungs are clear to auscultation bilaterally without any wheezing rhonchi or rales Cardiovascular: Normal S1 and S2 regular rate rhythm no murmurs rubs or gallops Abdomen: Soft, nontender and nondistended with positive bowel sounds Extremities: No lower extremity edema Skin: Normal color - Assessment and Plan (1) Abdominal pain Current Visit: Yes Status: Acute Assessment and Plan: CT of the abdomen/pelvis showed multifocal small bowel/large bowel wall thickening with multifocal adjacent inflammatory changes concerning for inflammatory bowel disease. Patient reports that, discomfort has resolved as has diarrhea Patient lost IV access overnight so we will place patient on oral Cipro/Flagyl/ prednisone Hope to regain IV access on 12/31/17 GI following with recommendations for colonoscopy on 12/31/17 (2) Colitis Current Visit: Yes Status: Acute Assessment and Plan: Patient's leukocytosis has resolved and she has been afebrile Oral Cipro/Flagyl as above (3) Diabetes Current Visit: No Status: Chronic Assessment and Plan: Continue coverage for sliding scale insulin - Time Spent with Patient Total time spent is greater than 50% in coordination of care (as documented) at patient's floor/unit and/or counseling patient: Internal Medicine: Result - Labs CBC & Chem 7: 12/30/17 10:17 12/30/17 10:17 Consult Discharge Plan - Plan Referrals: Neelima Meyer MD [Primary Care Provider] - (1) Abdominal pain Qualifiers: Abdominal location: unspecified location Qualified Code(s): R10.9 - Unspecified abdominal pain (3) Diabetes Qualifiers: Diabetes mellitus type: type 2 Diabetes mellitus complication status: without complication
[2017-12-30 10:29] LABS: Basophils # 0.1 K/mcL (0.0-0.2); Basophils % 0.6 %; Eosinophils # 0.1 K/mcL (0.0-0.6); Eosinophils % 0.5 %; Hematocrit 37.1 % (35.3-44.9); Hemoglobin 12.5 g/dL (11.5-15.4); Immature Granulocytes % 0.9 % (0-4); Lymphocytes # 3.8 K/mcL (0.6-4.6); Lymphocytes % 29.1 %; Mean Corpuscular HGB Conc 33.7 g/dL (31.6-35.5); Mean Corpuscular Hemoglobin 29.6 pg (28.0-33.3); Mean Corpuscular Volume 87.9 fL (83.0-100.0); Monocytes % 7.9 %; Neutrophils # 7.9 K/mcL (1.6-8.9); Platelet Count 387 K/mcL (140-400); Red Blood Count 4.22 M/mcL (3.82-4.97)
[2017-12-30 10:47] LABS: BUN/Creatinine Ratio 14 (6-26); Blood Urea Nitrogen 12 mg/dL (6-20); Calcium 9.4 mg/dL (8.6-10.3); Carbon Dioxide 23 mEq/L (23-29); Chloride 103 mEq/L (98-107); Glucose 165 mg/dL (70-105); Osmolality,Calculated 285 (280-300); Potassium 3.6 mEq/L (3.5-5.1); Sodium 136 mEq/L (136-145); eGFR For Non-African Americans > 60 (> 60)
[2017-12-30] MEDS ORDERED: SODIUM CHLORIDE/NAHCO3/KCL/PEG 4,000 ML SOLN.RECON PO ONE (17:00)
[2017-12-30] MEDS: predniSONE 20 MG TABLET PO SCH (17:23)
[2017-12-31] MEDS: Insulin LISPRO 300 UNITS/3 ML VIAL SQ SCH ×2 (00:44→06:09)
[2017-12-31] MEDS: predniSONE 20 MG TABLET PO SCH (08:54)
[2017-12-31] MEDS: metroNIDAZOLE 500 MG TABLET PO SCH (08:55)
[2017-12-31] MEDS: methylPREDNISolone 125 MG/2 ML VIAL IVP SCH (08:56)
[2017-12-31 10:10] LABS: Basophils # 0.1 K/mcL (0.0-0.2); Basophils % 0.6 %; Eosinophils % 0.3 %; Hemoglobin 11.4 g/dL (11.5-15.4); Immature Granulocytes % 0.5 % (0-4); Lymphocytes # 2.6 K/mcL (0.6-4.6); Lymphocytes % 22.3 %; Mean Corpuscular HGB Conc 33.5 g/dL (31.6-35.5); Mean Corpuscular Hemoglobin 29.3 pg (28.0-33.3); Mean Corpuscular Volume 87.4 fL (83.0-100.0); Mean Platelet Volume 10.3 fL (9.4-12.4); Monocytes # 0.8 K/mcL (0.0-1.3); Monocytes % 7.3 %; Neutrophils # 7.9 K/mcL (1.6-8.9); Platelet Count 337 K/mcL (140-400); Red Blood Count 3.89 M/mcL (3.82-4.97); Red Cell Distribution Width 14.1 % (11.5-14.5)
[2017-12-31 10:34] LABS: BUN/Creatinine Ratio 13 (6-26); Blood Urea Nitrogen 11 mg/dL (6-20); Calcium 9.1 mg/dL (8.6-10.3); Carbon Dioxide 28 mEq/L (23-29); Chloride 103 mEq/L (98-107); Glucose 119 mg/dL (70-105); Osmolality,Calculated 283 (280-300); Potassium 3.7 mEq/L (3.5-5.1); Sodium 136 mEq/L (136-145); eGFR For Non-African Americans > 60 (> 60)
[2017-12-31] MEDS ORDERED: Propofol 500 MG/50 ML INFUS..BTL ONE (12:11)
--- NOTE | 2017-12-31 13:00 | Anesthesia Evaluation PreOp ---
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 Other Medical History: Diabetes Type II Anesthesia History: Past Anesthesia (no prior GA) Test: Negative (12/27/2017) Alcohol Use: rarely Drug use: none Medications and Allergies Atorvastatin Calcium [Lipitor] 80 mg PO DAILY 07/29/15 [History] Lisinopril [Zestril] 5 mg PO DAILY 07/29/15 [History] Pioglitazone [Actos] 45 mg PO DAILY 07/29/15 [History] metFORMIN [Glucophage] 1,000 mg PO BID 07/29/15 [History] Ondansetron ODT [Zofran ODT] 4 mg SL Q4H PRN #20 tab.rapdis 08/01/15 [Rx] Ferrous Sulfate [Iron] 325 mg PO DAILY 09/21/15 [History] Chlordiazepoxide/Clidinium 1 tab PO Q12H PRN 12/28/17 [History] Cyanocobalamin (B-12) [Vitamin B12] 1,000 mcg IM QMONTH 12/28/17 [History] Multivitamin [One Daily Essential] 1 each PO DAILY 12/28/17 [History] Norethindrone AC-Eth Estradiol [Microgestin 21 1.5-30 Tab] 1 each PO AD [History] SitaGLIPtin [Januvia] 25 mg PO DAILY 12/28/17 [History] 3 Allergy/AdvReac Type Severity Reaction Status Date / Time No Known Allergies Allergy Verified 12/28/17 15:26 - Meds/Allergy Pre-op Review Medications Reviewed: Yes Allergies Reviewed: Yes Beta Blockers on Current Med List: No Anesthesia Results - Labs 12/31/17 09:39 12/31/17 09:39 Laboratory Tests 12/27/17 18:40 Urine Test Negative - Imaging EKG: report reviewed (12/27/2017 Sinus rhythm Short RI interval) Anesthesia Exam Vital Signs/O2 Sat/Glucose, Most Recent Temp Pulse Resp BP Pulse Ox 98.4 F 56 17 129/80 94 12/31/17 10:58 12/31/17 10:58 12/31/17 10:58 12/31/17 10:58 12/31/17 10:58 Blood Glucose* 137 Height: 5'/1.52m Weight: 232 lbs/105.5 kg NPO (# of Hours): 8 Pain Scale: 0 Pain Scale Used: Numeric (1 - 10) - HEENT Pupil (Motor): EOMI Mallampati: II Teeth: Normal Oral Opening: Greater than 3 - 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
[2017-12-31 13:01] VITALS: BP 142/102
--- NOTE | 2017-12-31 13:39 | Anesthesia Evaluation Post Op ---
Date of Encounter: 12/31/17 Time of Encounter: 13:36 - Vital Signs Vital Signs: BP 133/69 P 66 R 16 SPo2 98 - Lungs Lungs: Clear Ascult./Percussion - Airway Airway: Non-obstructed - Cardiovascular Regular Rate - Mental Status Mental Status: Alert & Oriented, Answers Appropriately - Pain Pain Scale: 0 Pain Scale used: Numeric (1 - 10) - Nausea Vomiting Nausea Vomiting: Not Present - Hydration Hydration: NPO - Discharge PostOp Status: Transfer Patient to floor
--- NOTE | 2017-12-31 15:43 | Discharge Summary ---
- NOTES TO OUTPATIENT PROVIDER Notes to Outpatient Provider: Follow-up with GI as an outpatient Orders not resulted at time of discharge: Pending orders 12/28/17 12:10 Calprotectin, Fecal Routine 12/31/17 13:34 Surgical Pathology [PTH] Routine Date of Encounter: 12/31/17 Time of Encounter: 11:00 - Discharge Diagnosis (1) Abdominal pain Priority: Primary Status: Acute Qualifiers: Abdominal location: unspecified location Qualified Code(s): R10.9 - Unspecified abdominal pain (2) Colitis Priority: Primary Status: Acute (3) Diabetes Priority: Secondary Status: Chronic Qualifiers: Diabetes mellitus type: type 2 Diabetes mellitus complication status: without complication Qualified Code(s): E11.9 - Type 2 diabetes mellitus without complications Hospital course: Patient is a 42-year-old female with past medical history significant for diabetes who presents due to abdominal pain, nausea/vomiting/diarrhea. Reports of having intermittent symptoms for the last couple years and has been seen and worked up for GI as an outpatient. Patient reports of redeveloping symptoms the day prior to admission decided come into the ER for evaluation. In the ER, CT of the abdomen/pelvis showed multifocal small bowel/large bowel wall thickening with multifocal adjacent inflammatory changes concerning for inflammatory bowel disease. He was admitted to medical surgical floor for further management and evaluation. During patients hospital stay, her symptoms resolved with IV Cipro/Flagyl in addition to IV Solu-Medrol. GI was consulted with recommendation for colonoscopy which showed no acute findings however biopsies were taken and awaiting pathology results. Recommendations for patient to be discharged on a prednisone taper and to follow -up with GI. - Time Spent with Patient Total time spent providing and/or coordinating discharge services: Less than 30 minutes - Discharge Medications Prescriptions: predniSONE [PredniSONE] 10 mg PO DAILY #77 tablet Home Medications: Atorvastatin Calcium [Lipitor] 80 mg PO DAILY 07/29/15 [History] Lisinopril [Zestril] 5 mg PO DAILY 07/29/15 [History] Pioglitazone [Actos] 45 mg PO DAILY 07/29/15 [History] metFORMIN [Glucophage] 1,000 mg PO BID 07/29/15 [History] Ondansetron ODT [Zofran ODT] 4 mg SL Q4H PRN #20 tab.rapdis 08/01/15 [Rx] Ferrous Sulfate [Iron] 325 mg PO DAILY 09/21/15 [History] Chlordiazepoxide/Clidinium 1 tab PO Q12H PRN 12/28/17 [History] Cyanocobalamin (B-12) [Vitamin B12] 1,000 mcg IM QMONTH 12/28/17 [History] Multivitamin [One Daily Essential] 1 each PO DAILY 12/28/17 [History] Norethindrone AC-Eth Estradiol [Microgestin 21 1.5-30 Tab] 1 each PO AD [History] SitaGLIPtin [Januvia] 25 mg PO DAILY 12/28/17 [History] predniSONE [PredniSONE] 10 mg PO DAILY #77 tablet 12/31/17 [Rx] Allergies/Adverse Reactions: 3 Allergy/AdvReac Type Severity Reaction Status Date / Time No Known Allergies Allergy Verified 12/28/17 15:26 Date of admission: 12/27/17 23:33 Primary care physician: Neelima Meyer Consults: 12/28/17 03:46 Consult to Gastroenterology [CONS] Routine Consulting Provider: Gastroenterology Paula Reason for Consult: Abdominal pain, inflammatory bowel disease on CT Call Completed: No - Constitutional Vitals: Temp Pulse Resp BP Pulse Ox 98.4 F 89 16 142/102 97 12/31/17 13:00 12/31/17 13:00 12/31/17 13:00 12/31/17 13:00 12/31/17 13:00 General appearance: Present: cooperative, A&O X 3, pleasant, no acute distress, answers questions appropriately Exam: Gen.: Nonacute distress, alert and oriented 3 Abdomen: Soft, nontender and nondistended with positive bowel sounds - Patient Status Disposition: Home, Self-Care Condition: Fair - Discharge Instructions Instructions: Prednisone (By mouth), Colonoscopy (DC) Follow Up With: Neelima Meyer MD [Primary Care Provider] -
== END 2017-12-31 16:44 | disposition home or self-care (01) ==
LOC: EMEROOARM 18:07 → 3BNU 18:07 → SUATTDRO 23:33 → 3BNU 12-28 01:10
PROVIDERS: ADMIT Family Medicine; ATTEND Hospitalist
PROC: ENDOCBX (2017-12-31 13:30)